=== PATIENT | female | born 1960 | race African-American/Black ===

== ENCOUNTER 2016-07-29 05:09 | Inpatient (IN) | payer MEDICARE, MEDICAID ==
[~2016-07-29] VITALS: Ht 180.3 cm; Wt 67.1 kg
[2016-07-29] MEDS ORDERED: ACETAMINOPHEN 325MG TABLET PO STA (06:24)
[2016-07-29] MEDS ORDERED: GENTAMICIN 80MG PREMIX 100 ML IV ONE (06:30)
[2016-07-29] MEDS ORDERED: VANCOMYCIN 1 G PREMIX 200 ML IV ONE (06:30)
[2016-07-29] MEDS ORDERED: ASPIRIN 81MG TABLET PO ONE (07:00)
[2016-07-29] MEDS ORDERED: SODIUM CHLORIDE 0.9% 1000ML BAG (SEPSIS BOLUS) IV ONE (07:00)
[2016-07-29 07:06] LABS: HEMATOCRIT. 35.1 % (36.0-48.0); HEMOGLOBIN. 11.3 g/dL (12.0-16.0); MEAN CORPUSCULAR HEMOGLOBIN 28.5 pg (28.0-32.0); MEAN CORPUSCULAR HGB CONC 32.2 g/dL (31.0-37.0); MEAN CORPUSCULAR VOLUME 88.5 fL (81.0-99.0); MEAN PLATELET VOLUME 7.7 fl (7.4-10.4); PLATELET 174 x1000/uL (130-400); RED BLOOD CELL COUNT 3.96 mill/uL (4.2-5.4); RED CELL DISTRIBUTION WIDTH 16.9 % (11.6-14.6); WHITE BLOOD COUNT 5.8 x1000/uL (4.5-11.0)
[2016-07-29 07:08] LABS: DIFFERENTIAL COMMENT 1
[2016-07-29 07:16] LABS: CHLORIDE 101 mEq/L (98-107); INDEX HEMOLYSI 1 (1-3); INDEX ICTERIC 1 (1-4); INDEX LIPEMIC 1 (1-3)
[2016-07-29 07:22] LABS: ALANINE AMINOTRANSFERASE 35 IU/L (13-61); ALBUMIN 2.9 g/dL (3.4-5.0); ANION GAP 19; CALCIUM 7.9 mg/dL (8.5-10.1); CARBON DIOXIDE 21 mEq/L (21-32); LIPASE 122 IU/L (73-393); UREA NITROGEN BLOOD 37 mg/dL (7-21); eGFR 8 mL/min (>60)
[2016-07-29 07:25] LABS: TROPONIN I 0.26 ng/mL (0.00-0.04)
[2016-07-29] MEDS ORDERED: HYDRALAZINE 20MG/ML VIAL IV ONE (07:30)
[2016-07-29 07:34] LABS: INR 1.1; PROTHROMBIN TIME 11.2 sec
[2016-07-29 08:23] LABS: ANISOCYTOSIS 1+; PLATELET ESTIMATE NORMAL
[2016-07-29 12:00] VITALS: BP 115/68
[2016-07-29] MEDS ORDERED: GENTAMICIN 120MG PREMIX 100 ML IV ONE (12:45)
[2016-07-29] MEDS ORDERED: DEXTROSE 50% WATER 50ML SYRINGE IV PRN (12:45)
[2016-07-29] MEDS: BLOOD SUGAR DIAGNOSTIC STRIP TEST SCH ×3 (12:50→21:24)
[2016-07-29] MEDS: FOLIC ACID/VITAMIN B COMP W-C TABLET PO SCH (13:48)
[2016-07-29] MEDS: INSULIN LISPRO 100 UNITS/ML SUBCUT SCH ×3 (13:49→21:31)
[2016-07-29] MEDS ORDERED: CLONIDINE 0.1MG TABLET PO PRN (14:45)
[2016-07-29 16:00] VITALS: BP 147/92
[2016-07-29] MEDS ORDERED: GENTAMICIN SULFATE IV NR (16:30)
[2016-07-29] MEDS ORDERED: SODIUM CHLORIDE 0.9% IV NR (16:30)
[2016-07-29] MEDS: ACETAMINOPHEN 325MG TABLET PO PRN (16:50)
[2016-07-29] MEDS: LEVOTHYROXINE SODIUM 50MCG TABLET PO SCH (16:54)
[2016-07-29] MEDS: CALCIUM ACETATE 667MG CAPSULE PO SCH (18:29)
[2016-07-29] MEDS: DOCUSATE SODIUM 100MG CAPSULE PO SCH (18:29)
[2016-07-29 20:00] VITALS: BP 115/68
[2016-07-29] MEDS: LEVETIRACETAM 500MG/5ML CUP PO SCH (21:30)
[2016-07-30] VITALS: BP 102/65
[2016-07-30 04:00] VITALS: BP 100/67
[2016-07-30] MEDS: LEVOTHYROXINE SODIUM 50MCG TABLET PO SCH (06:16)
[2016-07-30 06:26] LABS: HEMATOCRIT. 37.6 % (36.0-48.0); HEMOGLOBIN. 11.8 g/dL (12.0-16.0); MEAN CORPUSCULAR HEMOGLOBIN 28.5 pg (28.0-32.0); MEAN CORPUSCULAR HGB CONC 31.5 g/dL (31.0-37.0); MEAN CORPUSCULAR VOLUME 90.7 fL (81.0-99.0); MEAN PLATELET VOLUME 8.4 fl (7.4-10.4); PLATELET 146 x1000/uL (130-400); RED BLOOD CELL COUNT 4.15 mill/uL (4.2-5.4); RED CELL DISTRIBUTION WIDTH 17.5 % (11.6-14.6); WHITE BLOOD COUNT 12.2 x1000/uL (4.5-11.0)
[2016-07-30 06:28] LABS: ALBUMIN 2.6 g/dL (3.4-5.0); ANION GAP 18; CALCIUM 7.7 mg/dL (8.5-10.1); CARBON DIOXIDE 22 mEq/L (21-32); CHLORIDE 102 mEq/L (98-107); INDEX HEMOLYSI 1 (1-3); INDEX ICTERIC 1 (1-4); INDEX LIPEMIC 1 (1-3); MAGNESIUM 2.2 mg/dL (1.8-2.4); UREA NITROGEN BLOOD 54 mg/dL (7-21)
[2016-07-30 06:34] LABS: DIFFERENTIAL COMMENT 1
[2016-07-30 06:42] LABS: ALANINE AMINOTRANSFERASE 51 IU/L (13-61); PHOSPHORUS 6.3 mg/dL (2.5-4.9); T4 FREE 1.03 ng/dL (0.76-1.46); THYROID STIMULATING HORMONE 0.99 uIU/mL (0.36-3.74); eGFR 6 mL/min (>60)
[2016-07-30 06:47] LABS: T3 FREE < 0.50 pg/ml (2.18-3.98)
[2016-07-30] MEDS: BLOOD SUGAR DIAGNOSTIC STRIP TEST SCH ×4 (07:20→21:41)
[2016-07-30 08:00] VITALS: BP 123/74
[2016-07-30] MEDS: DOCUSATE SODIUM 100MG CAPSULE PO SCH ×2 (08:22→16:38)
[2016-07-30] MEDS: LEVETIRACETAM 500MG/5ML CUP PO SCH ×2 (08:33→21:38)
[2016-07-30] MEDS: INSULIN LISPRO 100 UNITS/ML SUBCUT SCH ×4 (08:33→21:40)
[2016-07-30] MEDS: CALCIUM ACETATE 667MG CAPSULE PO SCH ×3 (08:33→17:36)
[2016-07-30] MEDS: FOLIC ACID/VITAMIN B COMP W-C TABLET PO SCH (08:33)
[2016-07-30] MEDS ORDERED: FOLIC ACID/VITAMIN B COMP W-C TABLET PO SCH (09:00)
[2016-07-30] MEDS: ACETAMINOPHEN 325MG TABLET PO PRN (10:48)
[2016-07-30 12:00] VITALS: BP 104/62
[2016-07-30] MEDS ORDERED: LINA5TAB PO (12:08)
[2016-07-30] MEDS ORDERED: AMLO10TA80 PO (12:08)
[2016-07-30] MEDS ORDERED: CALC667C PO (12:08)
[2016-07-30] MEDS ORDERED: FURO20TA4 PO (12:08)
[2016-07-30] MEDS ORDERED: CLON0.1T PO (12:08)
[2016-07-30] MEDS ORDERED: ESOM40CA PO (12:08)
[2016-07-30] MEDS ORDERED: NIFE60TA7 PO (12:08)
[2016-07-30] MEDS ORDERED: KEPP500 PO (12:11)
[2016-07-30] MEDS ORDERED: CALC0.253 PO (12:11)
[2016-07-30] MEDS ORDERED: LEVO50TA8 PO (12:11)
[2016-07-30] MEDS ORDERED: HYDR-523 PO (12:16)
[2016-07-30] MEDS ORDERED: NEPVIT PO (12:16)
[2016-07-30 16:00] VITALS: BP 92/63
[2016-07-30 20:00] VITALS: BP 110/70
[2016-07-31 00:49] VITALS: BP 114/72
[2016-07-31] MEDS: ACETAMINOPHEN 325MG TABLET PO PRN ×2 (01:28→05:02)
[2016-07-31 04:00] VITALS: BP 131/79
[2016-07-31] MEDS: BLOOD SUGAR DIAGNOSTIC STRIP TEST SCH ×4 (06:33→21:29)
[2016-07-31] MEDS: LEVOTHYROXINE SODIUM 50MCG TABLET PO SCH (06:33)
[2016-07-31 07:41] LABS: HEMATOCRIT. 34.2 % (36.0-48.0); HEMOGLOBIN. 10.9 g/dL (12.0-16.0); MEAN CORPUSCULAR HEMOGLOBIN 28.7 pg (28.0-32.0); MEAN CORPUSCULAR HGB CONC 31.9 g/dL (31.0-37.0); MEAN PLATELET VOLUME 8.7 fl (7.4-10.4); PLATELET 147 x1000/uL (130-400); RED BLOOD CELL COUNT 3.79 mill/uL (4.2-5.4); RED CELL DISTRIBUTION WIDTH 17.2 % (11.6-14.6); WHITE BLOOD COUNT 6.8 x1000/uL (4.5-11.0)
[2016-07-31 07:52] VITALS: BP 119/73
[2016-07-31 07:55] LABS: CALCIUM 7.3 mg/dL (8.5-10.1)
[2016-07-31 08:19] LABS: DIFFERENTIAL COMMENT 1
[2016-07-31] MEDS ORDERED: HYDROCODONE/ACETAMINOPHEN 5/325MG TABLET PO PRN (08:30)
[2016-07-31] MEDS: CALCIUM ACETATE 667MG CAPSULE PO SCH ×3 (08:56→17:50)
[2016-07-31] MEDS: LINAGLIPTIN 5MG TABLET PO SCH (08:56)
[2016-07-31] MEDS: FOLIC ACID/VITAMIN B COMP W-C TABLET PO SCH (08:56)
[2016-07-31] MEDS: INSULIN LISPRO 100 UNITS/ML SUBCUT SCH ×4 (08:59→21:28)
[2016-07-31] MEDS: LEVETIRACETAM 500MG/5ML CUP PO SCH ×2 (09:00→22:44)
[2016-07-31] MEDS: DOCUSATE SODIUM 100MG CAPSULE PO SCH (09:00)
[2016-07-31] MEDS: HYDROCODONE/ACETAMINOPHEN 5/325MG TABLET PO PRN (10:01)
[2016-07-31 12:00] VITALS: BP 130/84
[2016-07-31 13:43] LABS: PLATELET ESTIMATE NORMAL
[2016-07-31 14:10] LABS: ANISOCYTOSIS 1+; PLATELET ESTIMATE NORMAL
[2016-07-31] MEDS: ONDANSETRON HCL 4MG/2ML VIAL IV PRN ×3 (14:24→23:48)
[2016-07-31] MEDS: HYDROMORPHONE HCL/PF 2MG/ML CPJ IV PRN (14:38)
[2016-07-31] MEDS: ENOXAPARIN 30MG/0.3ML SYR SUBCUT SCH (14:38)
[2016-07-31 16:08] VITALS: BP 147/90
[2016-07-31 20:00] VITALS: BP 148/86
[2016-07-31] MEDS ORDERED: GENTAMICIN 100MG PREMIX 50 ML IV SCH (20:00)
[2016-07-31] MEDS ORDERED: EPOETIN ALFA 4000UNITS/ML VIAL SUBCUT SCH (21:00)
[2016-08-01 00:31] VITALS: BP 145/87
[2016-08-01 04:00] VITALS: BP 166/99
[2016-08-01] MEDS: LEVOTHYROXINE SODIUM 50MCG TABLET PO SCH (06:21)
[2016-08-01] MEDS: BLOOD SUGAR DIAGNOSTIC STRIP TEST SCH ×4 (06:21→20:59)
[2016-08-01 06:34] LABS: CALCIUM 8.1 mg/dL (8.5-10.1)
[2016-08-01 07:02] LABS: HEMATOCRIT. 38.1 % (36.0-48.0); MEAN CORPUSCULAR HEMOGLOBIN 28.7 pg (28.0-32.0); MEAN CORPUSCULAR HGB CONC 31.5 g/dL (31.0-37.0); MEAN CORPUSCULAR VOLUME 91.1 fL (81.0-99.0); RED BLOOD CELL COUNT 4.18 mill/uL (4.2-5.4); RED CELL DISTRIBUTION WIDTH 17.5 % (11.6-14.6); WHITE BLOOD COUNT 6.5 x1000/uL (4.5-11.0)
[2016-08-01 08:00] VITALS: BP 148/93
[2016-08-01] MEDS: LEVETIRACETAM 500MG/5ML CUP PO SCH ×2 (08:20→21:00)
[2016-08-01] MEDS: ENOXAPARIN 30MG/0.3ML SYR SUBCUT SCH (08:20)
[2016-08-01] MEDS: LINAGLIPTIN 5MG TABLET PO SCH (08:20)
[2016-08-01] MEDS: FOLIC ACID/VITAMIN B COMP W-C TABLET PO SCH (08:20)
[2016-08-01] MEDS: CALCIUM ACETATE 667MG CAPSULE PO SCH ×3 (08:21→18:08)
[2016-08-01 08:22] LABS: DIFFERENTIAL COMMENT 1
[2016-08-01] MEDS: INSULIN LISPRO 100 UNITS/ML SUBCUT SCH ×4 (08:26→21:11)
[2016-08-01 10:34] LABS: MEAN PLATELET VOLUME 10.2 fl (7.4-10.4); PLATELET 138 x1000/uL (130-400)
[2016-08-01 12:00] VITALS: BP 145/89
[2016-08-01] MEDS: HYDROMORPHONE HCL/PF 2MG/ML CPJ IV PRN (15:55)
[2016-08-01 16:00] VITALS: BP 151/91
[2016-08-01 17:52] LABS: GIANT PLATELETS FEW; PLATELET ESTIMATE SLIGHTLY DECREASED
[2016-08-01] MEDS: ONDANSETRON HCL 4MG/2ML VIAL IV PRN (18:37)
[2016-08-01 20:00] VITALS: BP 167/93
[2016-08-02] VITALS: BP 158/104
[2016-08-02] MEDS: HYDROCODONE/ACETAMINOPHEN 5/325MG TABLET PO PRN (00:38)
[2016-08-02 04:00] VITALS: BP 144/98
[2016-08-02] MEDS: BLOOD SUGAR DIAGNOSTIC STRIP TEST SCH ×2 (06:34→12:47)
[2016-08-02] MEDS: LEVOTHYROXINE SODIUM 50MCG TABLET PO SCH (07:13)
[2016-08-02] MEDS: INSULIN LISPRO 100 UNITS/ML SUBCUT SCH ×2 (07:50→12:47)
[2016-08-02 08:00] VITALS: BP 141/94
[2016-08-02] MEDS: FOLIC ACID/VITAMIN B COMP W-C TABLET PO SCH (08:53)
[2016-08-02] MEDS: LEVETIRACETAM 500MG/5ML CUP PO SCH (08:53)
[2016-08-02] MEDS: LINAGLIPTIN 5MG TABLET PO SCH (08:53)
[2016-08-02] MEDS: CALCIUM ACETATE 667MG CAPSULE PO SCH ×2 (08:53→12:47)
[2016-08-02] MEDS: ENOXAPARIN 30MG/0.3ML SYR SUBCUT SCH (08:53)
[2016-08-02] MEDS: ONDANSETRON HCL 4MG/2ML VIAL IV PRN (09:38)
[2016-08-02 12:11] VITALS: BP 147/90
[2016-08-02 12:39] VITALS: BP 147/90
== END 2016-08-02 15:00 | disposition home or self-care (01) | DRG 314 ==
LOC: ER 05:29 → 6WST 07:12
PROC: 05PYX3Z Removal of Infusion Device from Upper Vein, External Approach (ICD-10-PCS; principal; 2016-07-29)
PROC: 5A1D60Z (ICD-10-PCS; 2016-07-31)
DX: T80.211A Bloodstream infection due to central venous catheter, initial encounter (principal); A41.50 Gram-negative sepsis, unspecified; N18.6 End stage renal disease; E46 Unspecified protein-calorie malnutrition; G81.91 Hemiplegia, unspecified affecting right dominant side; I12.0 Hypertensive chronic kidney disease with stage 5 chronic kidney disease or end stage renal disease; D64.9 Anemia, unspecified; E03.9 Hypothyroidism, unspecified; E11.22 Type 2 diabetes mellitus with diabetic chronic kidney disease; E66.01 Morbid (severe) obesity due to excess calories; G40.909 Epilepsy, unspecified, not intractable, without status epilepticus; E78.5 Hyperlipidemia, unspecified; E11.65 Type 2 diabetes mellitus with hyperglycemia; K21.9 Gastro-esophageal reflux disease without esophagitis; Y84.8 Other medical procedures as the cause of abnormal reaction of the patient, or of later complication, without mention of misadventure at the time of the procedure; Z98.84 Bariatric surgery status; Z68.20 Body mass index [BMI] 20.0-20.9, adult; Z98.49 Cataract extraction status, unspecified eye; Z99.2 Dependence on renal dialysis; Z91.040 Latex allergy status; Z91.048 Other nonmedicinal substance allergy status; Z79.2 Long term (current) use of antibiotics; Z79.899 Other long term (current) drug therapy; Z86.73 Personal history of transient ischemic attack (TIA), and cerebral infarction without residual deficits
CPT/HCPCS: 36415; 36589; 70450; 71010; 80048; 80053; 80170; 80202; 82962; 83605; 83690; 83735; 84100; 84439; 84443; 84481; 84484; 85025; 85610; 87040; 87070; 87077; 87186; 87205; 87804; 93005; 93306; 96365; 96366; 99291; J0885; J1170; J1580; J1650; J1815; J2405; J3370; J7030; J7050

== ENCOUNTER → 2017-09-22 | Outpatient (CLI) | payer MEDICARE, MEDICAID ==
[~2017-09-22] MED LIST: AMLO10TA80 PO; CALC0.253 PO; CALC667C PO; CLON0.1T PO; ESOM40CA PO; FURO20TA4 PO; HYDR-523 PO; KEPP500 PO; LEVO50TA8 PO; LINA5TAB PO; NEPVIT PO; NIFE60TA78 PO
== END | disposition home or self-care (01) ==
LOC: PVL 09:52
PROVIDERS: ATTEND Internal Medicine Nephrology
DX: I65.23 Occlusion and stenosis of bilateral carotid arteries (principal); I12.0 Hypertensive chronic kidney disease with stage 5 chronic kidney disease or end stage renal disease; E11.22 Type 2 diabetes mellitus with diabetic chronic kidney disease; N18.6 End stage renal disease; D63.1 Anemia in chronic kidney disease
CPT/HCPCS: 93880